=== PATIENT | female | born 1960 ===

== ENCOUNTER 2017-08-30 06:47 | Emergency (ER) | payer OTHER ==
[~2017-08-30] VITALS: Ht 170.2 cm; Wt 60.3 kg
[2017-08-30] MEDS ORDERED: Prednisone20 MG PO (07:21)
== END 2017-08-30 07:30 | disposition home or self-care (01) ==
LOC: ER 06:47
DX: K13.0 Diseases of lips (principal); T50.995A Adverse effect of other drugs, medicaments and biological substances, initial encounter; Z79.52 Long term (current) use of systemic steroids; Z88.1 Allergy status to other antibiotic agents
CPT/HCPCS: 99283

== ENCOUNTER 2018-02-05 10:25 | Day surgery (SDC) | payer OTHER ==
[~2018-02-05 10:25] MED LIST: Prednisone20 MG PO
== END 2018-02-05 22:36 | disposition home or self-care (01) ==
LOC: ORSCMMR 10:25 → ORD 11:30 → ORSCMMR 22:36
PROVIDERS: Internal Medicine Gastroenterology
PROC: 0DBN8ZX Excision of Sigmoid Colon, Via Natural or Artificial Opening Endoscopic, Diagnostic (ICD-10-PCS; principal; 2018-02-05 11:30)
DX: Z12.11 Encounter for screening for malignant neoplasm of colon (principal); K63.5 Polyp of colon; D12.5 Benign neoplasm of sigmoid colon; Z80.0 Family history of malignant neoplasm of digestive organs
CPT/HCPCS: 88305; J2250; J7030

== ENCOUNTER → 2019-08-03 | Outpatient (CLI) | payer OTHER ==
[2019-08-05 14:07] LABS: HPV 16 Negative (Negative); HPV 18 Negative (Negative); HPV OTHER HR TYPES Negative (Negative)
== END | disposition home or self-care (01) ==
LOC: LAB SHORT 18:59 → LAB 18:59
PROVIDERS: Nurse Practitioner Family
DX: Z12.4 Encounter for screening for malignant neoplasm of cervix (principal)
CPT/HCPCS: 87624; G0123